=== PATIENT | female | born 1945 | race Caucasian/White ===

== ENCOUNTER → 2017-07-25 | Outpatient (CLI) | payer MEDICARE, OTHER ==
--- NOTE | 2017-07-25 14:48 | PCVCIMAG ---
EXAM: BILATERAL RENAL ULTRASOUND AND BILATERAL RENAL DUPLEX INDICATION: Hypertension FINDINGS: Right kidney: Length measures 9.3 cm. No hydronephrosis or extensive renal scarring. Right renal duplex: Adequate technical quality. No sonographic evidence of renal artery stenosis. The aortic to renal artery ratio is 1.6. The renal vein is patent. Left kidney: Length measures 9.5 cm. No hydronephrosis or extensive renal scarring. Left renal duplex: Adequate technical quality. No sonographic evidence of renal artery stenosis. The aortic to renal artery ratio is 2.1. The renal vein is patent. Bladder: No obvious abnormalities. IMPRESSION: No significant renal artery stenosis. No hydronephrosis bilaterally. Ectasia of the infrarenal abdominal aorta measuring up to 2.8 cm in greatest dimension. LOC:[id number]
== END | disposition home or self-care (01) ==
LOC: PCVCIMAG 13:34
PROVIDERS: ATTEND Internal Medicine Cardiovascular Disease
DX: I10 Essential (primary) hypertension (principal); R07.9 Chest pain, unspecified; E78.00 Pure hypercholesterolemia, unspecified; J44.9 Chronic obstructive pulmonary disease, unspecified; R94.31 Abnormal electrocardiogram [ECG] [EKG]; F17.210 Nicotine dependence, cigarettes, uncomplicated; I77.811 Abdominal aortic ectasia; Z79.899 Other long term (current) drug therapy
CPT/HCPCS: 76770; 80061; 93005; 93975; G0463

== ENCOUNTER → 2017-07-25 | Outpatient (CLI) | payer MEDICARE, OTHER | END | disposition home or self-care (01) | LOC: PCVCCLINIC 13:04 | PROVIDERS: ATTEND Internal Medicine Cardiovascular Disease | DX: I10 Essential (primary) hypertension (principal); E78.00 Pure hypercholesterolemia, unspecified; I77.9 Disorder of arteries and arterioles, unspecified; J44.9 Chronic obstructive pulmonary disease, unspecified; R94.31 Abnormal electrocardiogram [ECG] [EKG]; R07.9 Chest pain, unspecified; F17.210 Nicotine dependence, cigarettes, uncomplicated; Z79.899 Other long term (current) drug therapy | CPT/HCPCS: 80061; 93005; G0463 ==

== ENCOUNTER → 2017-08-04 | Outpatient (CLI) | payer MEDICARE, OTHER ==
[~2017-08-04] MED LIST: AMINOPHYLLINE 250 MG/10 ML VIAL. ONE; REGADENOSON 0.4 MG/5 ML DISP.SYRIN. IV ONE
--- NOTE | 2017-08-09 09:59 | PCVCIMAG ---
APPROVED REPORT Study performed: 08/04/2017 08:12:42 EXAM: Comprehensive 2D, Doppler, and color-flow Echocardiogram Patient Location: Echo lab Room #: 2Status: routine BSA: 1.37 HR: 48 bpmBP: 182/80 mmHg Rhythm: Bradycardia Other Information Study Quality: Good Risk Factors: Cardiac Risk Factors: Hyperlipidemia, HTN, Smoking Indications COPD CAD Chest Pain 2D Dimensions LVEF(%): 84.15 (>50%) IVSd: 5.87 (7-11mm)LVOT Diam: 19.47 (18-24mm) LVDd: 40.40 mm PWd: 5.91 (7-11mm)Ascending Ao: 28.14 (22-36mm) LVDs: 19.13 (25-40mm) Left Atrium: 32.30 (27-40mm) Aortic Root: 20.38 mm LV Single Plane 4CH: 70.44 % LV Single Plane 2CH: 69.54 %Carter's LVEF: 69.99 % Biplane EF: 69.9 % Volumes Left Atrial Volume (Systole) Single Plane 4CH: 27.65 mLSingle Plane 2CH: 55.60 mL Biplane LA Volume: 42.00 mLLA ESV Index: 30.00 mL/m2 Aortic Valve AoV Peak Callum.: 1.18 m/s AO Peak Gr.: 5.58 mmHgLVOT Max P.41 mmHg LVOT Max V: 0.92 m/s VANI Vmax: 2.33 cm2 AI Vmax: 4.51 m/s AI Vernon: 2.86 m/s2 AI PHT: 458.63 ms Mitral Valve E/A Ratio: 1.0 MV Decel. Time: 238.44 ms MV E Max Callum.: 0.71 m/s MV A Callum.: 0.69 m/s IVRT: 79.58 ms TDI E/Lateral E': 14.20E/Medial E': 14.20 Medial E' Callum.: 0.05 m/s Lateral E' Callum.: 0.05 m/s Pulmonary Valve PV Peak Callum.: 0.77 m/sPV Peak Gr.: 2.40 mmHg Pulmonary Vein P Vein S: 0.41 m/sP Vein A: 0.41 m/s P Vein D: 0.52 m/sP Vein A Dur.: 110.7 msec P Vein S/D Ratio: 0.79 Tricuspid Valve TR Peak Callum.: 2.23 m/s TR Peak Gr.: 19.88 mmHg TV Vmax: 0.57 m/sPA Pressure: 27.00 mmHg Left Ventricle The left ventricle is normal size. There is normal LV segmental wall motion. There is normal left ventricular wall thickness. Left ventricular systolic function is normal. The left ventricular ejection fraction is within the normal range. LVEF is 65-70%. The left ventricular diastolic function is normal. Right Ventricle The right ventricle is normal size. The right ventricular systolic function is normal. Atria The left atrium size is normal. The right atrium size is normal. Aortic Valve The aortic valve is normal in structure. Trace to mild aortic regurgitation. There is no aortic valvular stenosis. Mitral Valve The mitral valve is normal in structure. Trace to mild mitral regurgitation. No evidence of mitral valve stenosis. Tricuspid Valve The tricuspid valve is normal in structure. Trace to mild tricuspid regurgitation. No pulmonary hypertension. Pulmonic Valve The pulmonary valve is normal in structure. There is no pulmonic valvular regurgitation. Great Vessels The aortic root is normal in size. The ascending aorta is normal in size. IVC is normal in size and collapses with >50% inspiration Pericardium There is no pericardial effusion. There is no pleural effusion. <Conclusion> The left ventricle is normal size. LVEF is 65-70%. The left ventricular diastolic function is normal. The right ventricle is normal size. The left atrium size is normal. The aortic valve is normal in structure. Trace to mild aortic regurgitation. Trace to mild mitral regurgitation. Trace to mild tricuspid regurgitation. No pulmonary hypertension. There is no pericardial effusion.
--- NOTE | 2017-08-09 17:39 | PCVCIMAG ---
APPROVED REPORT Exam: Nuclear Stress Test Indication: CHEST PAIN,ABN EKG Patient Location: Out-Patient Stress Nurse: Shanelle Sandoval RN, Delilah Velazco RN [place] Tech:Katarina Kemar [facility] Ht: 5 ft 1 in Wt: 96 lbs BSA: 1.38 m2 HR: 51 bpm BP: 171/79 mmHg BMI: 18.1 Rhythm: SR SA Medical History Medical History: AGE, HTN, CVD, COPD, PULMONARY FIBROSIS, FAM HX, CURRENT SMOKER Medications: ALBUTEROL,NORVASC,PRAVACHOL,BYSTOLIC Allergies: ASA, ATROPINE, IODINE, SEE CHART FOR THE REST Previous Cardiac Procedures: PCI 1995 Pretest Chest Pain Characteristics: Dyspnea Exercise History: Indeterminate Physical Disabilities: Lungs NM EXAM: Myocardial Perfusion REST/STRESS Imaging Protocol: Rest Tc-99m/Stress Tc-99m 1 day Resting Data Rest SPECT myocardial perfusion imaging was performed in supine position 60 minutes following the intravenous injection of 8.7 mCi of Tc-99m Sestamibi. Time of rest injection: 0855 Date: 08/04/2017 Administration Route: IV Administration Site: Left Wrist Pharmacologic Stress Pharmacologic stress test was performed by injecting Regadenoson 0.4 mg IV push followed by the intravenous injection of 27.2 mCi of Tc-99m Sestamibi. Time of stress injection: 1030 Date: 08/04/2017 Administration Route: IV Administration Site: Left Wrist The images were gated to evaluate regional wall motion and calculate left ventricular ejection fraction. Study Quality Study: Good Study Data Post stress, the left ventricular ejection was 84%.. SSS: 0 SRS: 2 SDS: 0 TID = 0.79. Perfusion No evidence of stress induced ischemia or prior myocardial infarction. Wall Motion Normal left ventricular size and function with no regional wall motion abnormalities. Nuclear Conclusion No evidence of stress induced ischemia or prior myocardial infarction. Normal left ventricular size and function with no regional wall motion abnormalities. Post stress, the left ventricular ejection was 84%.. No change since prior study dated November 2014. Interpreted by: Kris Rolon MD Electronically Approved: 08/04/2017 15:42:50 Stress Test Details Stress Test: Pharmacologic stress testing performed using 0.4 mg of regadenoson per 5 mL given IV over 10 seconds. Reason for pharmacologic stress test: physical limitation. Reversal agent Aminophyline 100 mg, given intravenously for nausea, other. HR Resting HR: 51 bpmMax Heart Rate (APMHR): 147 bpm Max HR Achieved: 86 bpmTarget HR (85% APMHR): 124 bpm % of APMHR: 58 Recovery HR: 65 bpm BP Resting BP: 171/79 mmHg Max BP: 174/80 mmHg ECG Resting ECG: SR SA Stress ECG: Sinus Rhythm Recovery ECG: Sinus Rhythm Clinical Reason for Termination: Completed protocol Stress Symptoms: DYSPNEA, N/V, SHAKING Exercise duration: min 55 sec Exercise capacity: 1.0 METs Symptoms resolved during recovery with aminophylline. Stress ECG Conclusion Clinical: Non-ischemic ECG: Non-ischemic <Conclusion> Clinical: Non-ischemic ECG: Non-ischemic
== END | disposition home or self-care (01) ==
LOC: PCVCIMAG 07:56
PROVIDERS: ATTEND Internal Medicine Cardiovascular Disease
DX: I25.10 Atherosclerotic heart disease of native coronary artery without angina pectoris (principal); J44.9 Chronic obstructive pulmonary disease, unspecified; R07.9 Chest pain, unspecified; E78.5 Hyperlipidemia, unspecified; I10 Essential (primary) hypertension; R06.00 Dyspnea, unspecified; F17.200 Nicotine dependence, unspecified, uncomplicated
CPT/HCPCS: 78452; 93017; 93306; A9500; J0280; J2785